=== PATIENT | female | born 1995 | race Caucasian/White ===

== ENCOUNTER 2022-05-20 00:44 | Emergency (ER) | payer OTHER ==
[~2022-05-20] VITALS: Ht 170.2 cm; Wt 95.3 kg
[2022-05-20 00:54] VITALS: BP 145/75
--- NOTE | 2022-05-20 01:00 | NUR ---
BIBSELF C/O LEFT SHOULDER PAIN X 1 HR PT A/OX4. AMBULATORY WITH STEADY GAIT
== END 2022-05-20 01:59 | disposition home or self-care (01) ==
LOC: ER 00:46
DX: O26.899 Other specified pregnancy related conditions, unspecified trimester (principal); M75.52 Bursitis of left shoulder; Z3A.00 Weeks of gestation of pregnancy not specified